=== PATIENT | female | born 1950 | race Caucasian/White ===

== ENCOUNTER 2024-10-25 10:51 | Emergency (ER) | payer MEDICARE ==
[~2024-10-25] VITALS: Ht 172.7 cm; Wt 79.4 kg
--- NOTE | 2024-10-25 11:42 | EKG ---
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
[2024-10-25 12:16] LABS: BASOPHILS # (AUTO) 0.03 K/uL (0.00-0.20); BASOPHILS % (AUTO) 0.6 % (0.0-5.0); EOSINOPHILS # (AUTO) 0.11 K/uL (0.00-0.70); EOSINOPHILS % (AUTO) 2.1 % (0.0-8.0); HEMATOCRIT 42.7 % (36-48); IMMATURE GRANULOCYTE ABSOLUTE 0.01 K/uL (0-1); LYMPHOCYTES # (AUTO) 1.3 K/uL (1.0-4.8); LYMPHOCYTES % (AUTO) 25.2 % (21.0-51.0); MEAN CORPUSCULAR HEMOGLOBIN 32.4 pg (27.0-33.0); MEAN CORPUSCULAR HGB CONC 33.7 g/dL (32.0-36.0); MEAN CORPUSCULAR VOLUME 96.2 fL (79-99); MONOCYTES # (AUTO) 0.2 K/uL (0.1-1.0); MONOCYTES % (AUTO) 4.2 % (3.0-13.0); NEUTROPHILS # (AUTO) 3.6 K/uL (1.8-7.7); NEUTROPHILS % (AUTO) 67.7 % (40.0-77.0); PLATELET COUNT (AUTO) 231 K/uL (130-400); RED BLOOD CELL COUNT(AUTO) 4.44 MIL/uL (4.00-5.50); RED CELL DISTRIBUTION WIDTH 15.1 % (11.0-15.5); WHITE BLOOD COUNT (AUTO) 5.2 K/uL (4.8-10.8)
[2024-10-25 12:24] LABS: CREATININE 0.9 mg/dL (0.5-1.0); POTASSIUM 4.1 mmol/L (3.5-5.1)
[2024-10-25 12:28] LABS: ALBUMIN 4.8 g/dL (3.5-5.0); BILIRUBIN,DIRECT 0.2 mg/dL (0.0-0.3); BILIRUBIN,TOTAL 0.8 mg/dL (0.2-1.0); TOTAL PROTEIN, SERUM 8.5 g/dL (6.0-8.3)
[2024-10-25] MEDS: diazePAM 5 MG/ML 2 ML SYG IM ONE (12:38)
--- NOTE | 2024-10-25 12:48 | HMCIMG ---
CT ABD/PEL WO CON RENAL/APPY REASON: flank pain COMPARISON: None. FINDINGS: There are bilateral breast implants, only partially visualized, no CT evidence of rupture. Lung bases are clear. There are no focal liver lesions. There is a 3 mm nonobstructing stone right kidney. Kidneys appear otherwise normal with no mass or hydronephrosis.. Spleen and pancreas appear unremarkable. There has been a previous cholecystectomy. There is moderate sigmoid diverticulosis without evidence of diverticulitis. Bowel loops appear otherwise unremarkable. This includes normal appearance of the appendix There is no evidence of free fluid or intraperitoneal air. There are no focal fluid collections. Aorta and retroperitoneum appear normal as do pelvic soft tissue structures. The anterior abdominal wall is intact. Osseous structures appear unremarkable. IMPRESSION: 1. Moderate sigmoid diverticulosis without evidence of diverticulitis. 2. Absent gallbladder. 3. 3 mm stone left kidney, nonobstructing. 4. No acute finding in the abdomen or pelvis. CT was performed with one or more following dose reduction techniques: automated exposure control, adjustment of the mA and kv according to patient's size, or use of a iterative reconstruction technique.
--- NOTE | 2024-10-25 13:23 | ERN ---
ED Note History of Present Illness Stated Complaint: BACK PAIN Chief Complaint: Back Pain or Injury Dictation: 74-year-old female presents to the ED for evaluation of back pain onset four days ago. Patient denies any trauma, injury or any other associated symptoms at this time. Patient states has been hard to breathe due to the pain has been taking Tylenol and tramadol at home. Allergies: Coded Allergies: Penicillins (Unverified Allergy, Intermediate, 10/25/24) erythromycin base (Unverified Allergy, Intermediate, 10/25/24) Home Meds Active Scripts Cyclobenzaprine HCl (Cyclobenzaprine HCl) 5 Mg Tablet, 5 MG PO BID for 5 Days, #10 TAB Prov:HORACIO REYES MD 10/25/24 Past Medical History Past Medical History: High Cholesterol, Hypothyroid Surgical History: Cholecystectomy, Review of System Dictation Constitutional: Negative for fever,chills, and weight loss Eyes: Negative for injury, pain,redness, and discharge ENT: Negative for injury,pain or swelling Cardiovascular: Negative for chest pain, palpitations, and edema Respiratory: Negative for shortness of breath, cough, and wheezing, Abdomen/GI: Negative for abdominal pain, nausea, vomiting, diarrhea, and constipation Back: Positive for back pain : Negative for injury, bleeding and discharge MS/Extremity: Negative for injury and deformity Skin: Negative for rash, and discoloration Neuro: Negative for headache, weakness, numbness, tingling, and seizure Psych: Negative for suicide ideation, homicidal ideation, and hallucinations Initial Vital Sign VS Vital Signs Date Time Temp Pulse Resp B/P (MAP) Pulse Ox O2 Delivery O2 Flow Rate FiO2 10/25/24 11:37 97.3 92 20 121/102 99 Room Air 0 10/25/24 12:09 21 Physical Exam Dictation General: awake, alert, NAD Head/Face: Normocephalic, atraumatic Eyes: PERRL, EOMI, vision at baseline ENT: oral cavity clear, TMs clear, no signs of infection Neck: Trachea midline, supple, no nuchal rigidity Cardiovascular: RRR, normal S1/S2, No MRGs, no JVD Respiratory: CTAB, no respiratory distress, No rales or wheezes Abdomen: Soft, non-tender, non-distended, normal bowel sounds, no guarding or rebound. Skin: Warm, dry, normal turgor, no rash MS/Extremity: Pulses equal, no cyanosis, neurovascular intact, FROM Neuro: COAx4, GCS 15, strength 5/5, CN 2-12 intact, normal cerebellar exam, normal gait, Psych: Normal behavior, mood, and affect normal Results (Laboratory/Radiology) Laboratory/Radiology Laboratory Tests Test 10/25/24 12:06 10/25/24 13:55 White Blood Count 5.2 K/uL (4.8-10.8) Red Blood Count 4.44 MIL/uL (4.00-5.50) Hemoglobin 14.4 g/dL (12.0-16.0) Hematocrit 42.7 % (36-48) Mean Corpuscular Volume 96.2 fL (79-99) Mean Corpuscular Hemoglobin 32.4 pg (27.0-33.0) Mean Corpuscular Hemoglobin Concent 33.7 g/dL (32.0-36.0) Red Cell Distribution Width 15.1 % (11.0-15.5) Platelet Count 231 K/uL (130-400) Mean Platelet Volume 9.6 fL (7.5-10.5) Immature Granulocyte % (Auto) 0.2 % (0-1) Neutrophils (%) (Auto) 67.7 % (40.0-77.0) Lymphocytes (%) (Auto) 25.2 % (21.0-51.0) Monocytes (%) (Auto) 4.2 % (3.0-13.0) Eosinophils (%) (Auto) 2.1 % (0.0-8.0) Basophils (%) (Auto) 0.6 % (0.0-5.0) Neutrophils # (Auto) 3.6 K/uL (1.8-7.7) Lymphocytes # (Auto) 1.3 K/uL (1.0-4.8) Monocytes # (Auto) 0.2 K/uL (0.1-1.0) Eosinophils # (Auto) 0.11 K/uL (0.00-0.70) Basophils # (Auto) 0.03 K/uL (0.00-0.20) Absolute Immature Granulocyte (auto 0.01 K/uL (0-1) Nucleated Red Blood Cells 0.0 % (0.0-0.19) Sodium Level 139 mmol/L (136-145) Potassium Level 4.1 mmol/L (3.5-5.1) Chloride Level 101 mmol/L (101-111) Carbon Dioxide Level 32 mmol/L (21-32) Blood Urea Nitrogen 21 mg/dL (7-18) H Creatinine 0.9 mg/dL (0.5-1.0) Glomerular Filtration Rate Calc 67 mL/min (>90) Random Glucose 106 mg/dL (70-105) H Total Calcium 9.6 mg/dL (8.5-10.1) Total Bilirubin 0.8 mg/dL (0.2-1.0) Direct Bilirubin 0.2 mg/dL (0.0-0.3) Aspartate Amino Transf (AST/SGOT) 22 U/L (10-37) Alanine Aminotransferase (ALT/SGPT) 24 U/L (12-78) Alkaline Phosphatase 83 U/L (50-136) Troponin I High Sensitivity 7 ng/L (4-50) Total Protein 8.5 g/dL (6.0-8.3) H Albumin 4.8 g/dL (3.5-5.0) Urine Color YELLOW (YELLOW) Urine Appearance CLEAR (CLEAR) Urine pH 5.5 (5.0-8.0) Urine Specific [place] 1.037 (1.001-1.031) Urine Protein 30 mg/dL (NEGATIVE) H Urine Glucose (UA) NEGATIVE mg/dL (NEGATIVE) Urine Ketones 5 mg/dL (NEGATIVE) H Urine Occult Blood NEGATIVE (NEGATIVE) Urine Nitrate NEGATIVE (NEGATIVE) Urine Bilirubin NEGATIVE mg/dL (NEGATIVE) Urine Urobilinogen 3 mg/dL (0.2-1.0) H Urine Leukocyte Esterase 25 Brianda/uL (NEGATIVE) H Urine RBC 2-5 /HPF (0-1) H Urine WBC 2-5 /HPF (0-1) H Urine Squamous Epithelial Cells FEW /HPF (0-2) Urine Bacteria RARE /HPF (None Seen) Labs Reviewed?: Yes EKG Comment: EKG 10/25/2024 time 11:39 a.m. ventricular rate 89, AL 144, QRS D 85, QT 390. Sinus rhythm, low voltage precordial leads, nonspecific T abnormalities, lateral leads. No STEMI CT Scan Comment: BLU: flank pain ORDERING PHYSICIAN: HORACIO REYES MD PROCEDURE: ABD PELVWO - CT ABD/PEL WO CON RENAL/APPY CT ABD/PEL WO CON RENAL/APPY REASON: flank pain COMPARISON: None. FINDINGS: There are bilateral breast implants, only partially visualized, no CT evidence of rupture. Lung bases are clear. There are no focal liver lesions. There is a 3 mm nonobstructing stone right kidney. Kidneys appear otherwise normal with no mass or hydronephrosis.. Spleen and pancreas appear unremarkable. There has been a previous cholecystectomy. There is moderate sigmoid diverticulosis without evidence of diverticulitis. Bowel loops appear otherwise unremarkable. This includes normal appearance of the appendix There is no evidence of free fluid or intraperitoneal air. There are no focal fluid collections. Aorta and retroperitoneum appear normal as do pelvic soft tissue structures. The anterior abdominal wall is intact. Osseous structures appear unremarkable. IMPRESSION: 1. Moderate sigmoid diverticulosis without evidence of diverticulitis. 2. Absent gallbladder. 3. 3 mm stone left kidney, nonobstructing. 4. No acute finding in the abdomen or pelvis. CT was performed with one or more following dose reduction techniques: automated exposure control, adjustment of the mA and kv according to patient's size, or use of a iterative reconstruction technique. DICTATED BY: WILLIAM LARA MD DATE: 10/25/24 1244 ED Course ED Course Orders Procedure Category Date Status Time 12 Lead Ekg Tracing- EKG 10/25/24 Complete Technical 11:36 Cbc With Differential LAB 10/25/24 Complete 11:43 Basic Metabolic Panel LAB 10/25/24 Complete 11:43 Hepatic Function Panel LAB 10/25/24 Complete 11:43 Troponin I High LAB 10/25/24 Complete Sensitivity 11:43 Urinalysis Profile LAB 10/25/24 Complete 11:43 Ct Abd/Pel Wo Con CT 10/25/24 Resulted Renal/Appy 11:43 Diazepam 5 Mg/Ml 2 Ml PHA 10/25/24 Complete Syg (Valium 5 Mg/M 12:30 Hydrocodone/Apap PHA 10/25/24 Complete 10/325 Tab ([place] 10) 13:30 Current Medications Medications (Trade) Dose Ordered Sig/Martha Route PRN Reason Start Time Stop Time Status Last Admin Dose Admin Acetaminophen/ Hydrocodone Bitart (NORco 10) 1 tab ONCE ONCE PO 10/25/24 13:30 10/25/24 13:31 DC 10/25/24 13:30 Diazepam (VALium 5 MG/ML 2 ML SYG) 5 mg ONCE ONCE IM 10/25/24 12:30 10/25/24 12:32 DC 10/25/24 12:38 Vital Signs Date Time Temp Pulse Resp B/P (MAP) Pulse Ox O2 Delivery O2 Flow Rate FiO2 10/25/24 14:54 98.2 90 16 118/94 98 Room Air* 0 21 10/25/24 12:09 98.1 90 16 120/89 98 Room Air* 0 21 10/25/24 11:37 97.3 92 20 121/102 99 Room Air 0 Medical Decision Making MDM MDM: Differential diagnosis: Back pain, back strain Rationale: Tests considered and ordered secondary to shared decision making include: labs, ECG and radiology Risk of complication and/or morbidity or mortality of patient management: None Medications-Per medication reconciliation Need for hospitalization: Patient does meet criteria for hospitalization. Need for emergency major/minor surgery: No There are no social concerns with this patient. Prescription drug management Prescriptions will include symptomatic care I independently interpreted the test that were performed, results were reviewed by me and considered findings on radiology if ordered. DX & DISP Disposition: Discharge Departure Impression: Primary Impression: Acute back pain Condition: Stable Scripts Cyclobenzaprine HCl (Cyclobenzaprine HCl) 5 Mg Tablet 5 MG PO BID for 5 Days, #10 TAB Prov: HORACIO REYES MD 10/25/24 Referrals: SELF,REFERRAL (PCP) HORACIO REYES MD Oct 25, 2024 13:23
[2024-10-25] MEDS: HYDROcodone/acetaMINOPHEN 10/325 MG TAB PO ONE (13:30)
[2024-10-25 14:16] LABS: APPEARANCE,URINE CLEAR (CLEAR); BILIRUBIN,URINE NEGATIVE (NEGATIVE); COLOR,URINE YELLOW (YELLOW); GLUCOSE, URINE (UA) NEGATIVE (NEGATIVE); KETONES,URINE 5 mg/dL (NEGATIVE); LEUKOCYTE ESTERASE ,URINE 25 Leu/uL (NEGATIVE); NITRATE,URINE NEGATIVE (NEGATIVE); OCCULT BLOOD,URINE NEGATIVE (NEGATIVE); PH,URINE 5.5 (5.0-8.0); PROTEIN,URINE 30 mg/dL (NEGATIVE); UROBILINOGEN,URINE 3 mg/dL (0.2-1.0)
[2024-10-25 14:18] LABS: ADD UA MICROSCOPIC YES
[2024-10-25 14:21] LABS: BACTERIA,URINE RARE /HPF (None Seen); MUCUS,URINE FEW LPF (None Seen); SQUAMOUS EPITHELIAL CELL,UR FEW /HPF (0-2)
[2024-10-25 14:54] VITALS: BP 118/94; PULSE 90; RESP 16; TEMP 98.3; O2SAT 98
[2024-10-25] MEDS ORDERED: CYCL5TAB3 PO (15:04)
== END 2024-10-25 15:12 | disposition home or self-care (01) ==
LOC: EDH 10:51
DX: M54.50 Low back pain, unspecified (principal); E03.9 Hypothyroidism, unspecified; E78.00 Pure hypercholesterolemia, unspecified; Z88.0 Allergy status to penicillin; Z88.1 Allergy status to other antibiotic agents; Z90.49 Acquired absence of other specified parts of digestive tract
CPT/HCPCS: 99285; 74176; 80076; 84484; 80048; 85025; 81001; 36415; 96372; 93005; J3360